=== PATIENT | male | born 1995 | race Caucasian/White ===

== ENCOUNTER 2023-10-16 01:38 | Emergency (ER) | payer OTHER ==
[~2023-10-16] VITALS: Ht 177.8 cm; Wt 122.5 kg
[2023-10-16 02:05] VITALS: BP 142/82; TEMP 98.5; O2SAT 98
[2023-10-16] MEDS ORDERED: IBUPROFEN 600 MG TABLET PO ONE (02:30)
== END 2023-10-16 02:21 | disposition left against medical advice (07) ==
LOC: ER 01:38
DX: M54.2 Cervicalgia (principal); R03.0 Elevated blood-pressure reading, without diagnosis of hypertension